=== PATIENT | male | born 1960 | race Caucasian/White ===

== ENCOUNTER 2016-07-26 09:01 | Outpatient (RCR) | payer BC ==
--- OUTSIDE RECORDS SUMMARY | 2016-07-26 09:04 | XMS REPORT | Continuity of Care Document ---
Author Author [facility] Organization [facility] Address Unknown Phone Unavailable Care Team Providers Care Egyptologist Name Role Phone PCP Unavailable Source Comments Some departments are not documenting in the electronic medical record. If you do not see the information that you expected, contact Release of Information in the Health Information Management department at [phone] for further assistance in locating additional records.[facility] Active Allergies and Adverse Reactions Not on File Current Medications Not on file Active Problems Not on file Social History Tobacco Use Types Packs/Day Years Used Date Never Assessed Plan of Care Health Maintenance Due Date Last Done Comments Physical (Comprehensive) 1967 Exam Pertussis Vaccine 1969 Tetanus Vaccine 1975 Colorectal Cancer 01/23/2008 Screening Influenza Vaccine 02/12/2016 Results from Last 3 Months Not on file
== END 2016-10-24 | disposition home or self-care (01) ==
LOC: ONC 09:01
PROVIDERS: ATTEND Internal Medicine Hematology & Oncology
DX: C92.10 Chronic myeloid leukemia, BCR/ABL-positive, not having achieved remission (principal); Z85.850 Personal history of malignant neoplasm of thyroid; E89.0 Postprocedural hypothyroidism; I12.9 Hypertensive chronic kidney disease with stage 1 through stage 4 chronic kidney disease, or unspecified chronic kidney disease; N18.3 Chronic kidney disease, stage 3 (moderate); Z79.899 Other long term (current) drug therapy

== ENCOUNTER → 2016-08-10 | Outpatient (CLI) | payer BC ==
--- OUTSIDE RECORDS SUMMARY | 2016-08-10 10:19 | XMS REPORT | Continuity of Care Document ---
Author Author [facility] Organization [facility] Address Unknown Phone Unavailable Care Team Providers Care Asbestos Pipe Supervisor Name Role Phone PCP Unavailable Source Comments Some departments are not documenting in the electronic medical record. If you do not see the information that you expected, contact Release of Information in the Health Information Management department at [phone] for further assistance in locating additional records.[facility] Active Allergies and Adverse Reactions Not on [...]
== END ==
LOC: FS 10:17
PROVIDERS: ATTEND Internal Medicine Hematology & Oncology
DX: C92.10 Chronic myeloid leukemia, BCR/ABL-positive, not having achieved remission (principal); Z85.850 Personal history of malignant neoplasm of thyroid; E89.0 Postprocedural hypothyroidism; I12.9 Hypertensive chronic kidney disease with stage 1 through stage 4 chronic kidney disease, or unspecified chronic kidney disease; N18.3 Chronic kidney disease, stage 3 (moderate); Z79.899 Other long term (current) drug therapy
CPT/HCPCS: 99213

== ENCOUNTER 2017-01-14 09:10 | Outpatient (RCR) | payer BC | END 2017-03-12 | disposition home or self-care (01) | LOC: ONC 09:10 | PROVIDERS: ATTEND Internal Medicine Hematology & Oncology | DX: C92.10 Chronic myeloid leukemia, BCR/ABL-positive, not having achieved remission (principal); Z85.850 Personal history of malignant neoplasm of thyroid; E89.0 Postprocedural hypothyroidism; I12.9 Hypertensive chronic kidney disease with stage 1 through stage 4 chronic kidney disease, or unspecified chronic kidney disease; N18.3 Chronic kidney disease, stage 3 (moderate); Z79.899 Other long term (current) drug therapy ==

== ENCOUNTER → 2017-02-01 | Outpatient (CLI) | payer BC | LOC: FS 01-31 15:23 | PROVIDERS: ATTEND Internal Medicine Hematology & Oncology | DX: C92.10 Chronic myeloid leukemia, BCR/ABL-positive, not having achieved remission (principal); Z85.850 Personal history of malignant neoplasm of thyroid; E89.0 Postprocedural hypothyroidism; I12.9 Hypertensive chronic kidney disease with stage 1 through stage 4 chronic kidney disease, or unspecified chronic kidney disease; N18.3 Chronic kidney disease, stage 3 (moderate); Z79.899 Other long term (current) drug therapy | CPT/HCPCS: 99213 ==

== ENCOUNTER 2017-08-09 09:43 | Outpatient (RCR) | payer BC | END 2017-11-07 | disposition home or self-care (01) | LOC: ONC 09:43 | PROVIDERS: ATTEND Internal Medicine Hematology & Oncology | DX: C92.10 Chronic myeloid leukemia, BCR/ABL-positive, not having achieved remission (principal); Z85.850 Personal history of malignant neoplasm of thyroid; E89.0 Postprocedural hypothyroidism; I12.9 Hypertensive chronic kidney disease with stage 1 through stage 4 chronic kidney disease, or unspecified chronic kidney disease; N18.3 Chronic kidney disease, stage 3 (moderate); Z79.899 Other long term (current) drug therapy | CPT/HCPCS: 99213 ==

== ENCOUNTER 2018-01-24 08:47 | Outpatient (RCR) | payer BC | END 2018-02-10 | disposition home or self-care (01) | LOC: ONC 08:47 | PROVIDERS: ATTEND Internal Medicine Hematology & Oncology | DX: C92.10 Chronic myeloid leukemia, BCR/ABL-positive, not having achieved remission (principal); Z85.850 Personal history of malignant neoplasm of thyroid; E89.0 Postprocedural hypothyroidism; I12.9 Hypertensive chronic kidney disease with stage 1 through stage 4 chronic kidney disease, or unspecified chronic kidney disease; N18.3 Chronic kidney disease, stage 3 (moderate); Z79.899 Other long term (current) drug therapy | CPT/HCPCS: 99213 ==

== ENCOUNTER 2018-07-24 09:16 | Outpatient (RCR) | payer BC | END 2018-10-22 | disposition home or self-care (01) | LOC: ONC 09:16 | PROVIDERS: ATTEND Internal Medicine Hematology & Oncology | DX: C92.10 Chronic myeloid leukemia, BCR/ABL-positive, not having achieved remission (principal); Z85.850 Personal history of malignant neoplasm of thyroid; E89.0 Postprocedural hypothyroidism; I12.9 Hypertensive chronic kidney disease with stage 1 through stage 4 chronic kidney disease, or unspecified chronic kidney disease; N18.3 Chronic kidney disease, stage 3 (moderate); Z79.899 Other long term (current) drug therapy | CPT/HCPCS: 99213 ==

== ENCOUNTER → 2019-01-22 | Outpatient (CLI) | payer BC | LOC: EDSTATUS 10-23 16:43 → ONC 08:51 | PROVIDERS: ATTEND Internal Medicine Hematology & Oncology | DX: C92.10 Chronic myeloid leukemia, BCR/ABL-positive, not having achieved remission (principal); Z85.850 Personal history of malignant neoplasm of thyroid; E89.0 Postprocedural hypothyroidism; I12.9 Hypertensive chronic kidney disease with stage 1 through stage 4 chronic kidney disease, or unspecified chronic kidney disease; N18.3 Chronic kidney disease, stage 3 (moderate); Z79.899 Other long term (current) drug therapy | CPT/HCPCS: 99213 ==

== ENCOUNTER → 2019-07-23 | Outpatient (CLI) | payer BC | LOC: ONC 08:46 | PROVIDERS: ATTEND Internal Medicine Hematology & Oncology | DX: C92.10 Chronic myeloid leukemia, BCR/ABL-positive, not having achieved remission (principal); Z85.850 Personal history of malignant neoplasm of thyroid; E89.0 Postprocedural hypothyroidism; I12.9 Hypertensive chronic kidney disease with stage 1 through stage 4 chronic kidney disease, or unspecified chronic kidney disease; N18.3 Chronic kidney disease, stage 3 (moderate); Z79.899 Other long term (current) drug therapy | CPT/HCPCS: 99213 ==

== ENCOUNTER → 2020-01-17 | Outpatient (CLI) | payer BC | LOC: ONC 08:34 | PROVIDERS: ATTEND Internal Medicine Hematology & Oncology | DX: C92.10 Chronic myeloid leukemia, BCR/ABL-positive, not having achieved remission (principal); Z85.850 Personal history of malignant neoplasm of thyroid; E89.0 Postprocedural hypothyroidism; I12.9 Hypertensive chronic kidney disease with stage 1 through stage 4 chronic kidney disease, or unspecified chronic kidney disease; N18.3 Chronic kidney disease, stage 3 (moderate); Z79.899 Other long term (current) drug therapy | CPT/HCPCS: 99213 ==

== ENCOUNTER → 2020-07-22 | Outpatient (CLI) | payer BC | LOC: ONC 08:58 | PROVIDERS: ATTEND Internal Medicine Hematology & Oncology | DX: C92.10 Chronic myeloid leukemia, BCR/ABL-positive, not having achieved remission (principal); E03.9 Hypothyroidism, unspecified; N18.30 Chronic kidney disease, stage 3 unspecified; Z79.899 Other long term (current) drug therapy; Z85.850 Personal history of malignant neoplasm of thyroid; Z90.89 Acquired absence of other organs | CPT/HCPCS: 99213 ==

== ENCOUNTER → 2021-02-19 | Outpatient (CLI) | payer BC | LOC: ONC 09:12 | PROVIDERS: ATTEND Internal Medicine Hematology & Oncology | DX: C92.10 Chronic myeloid leukemia, BCR/ABL-positive, not having achieved remission (principal); E03.9 Hypothyroidism, unspecified; E66.9 Obesity, unspecified; Z79.899 Other long term (current) drug therapy; Z85.850 Personal history of malignant neoplasm of thyroid | CPT/HCPCS: 99213 ==

== ENCOUNTER 2022-12-25 18:33 | Emergency (ER) | payer BC ==
[~2022-12-25] VITALS: Ht 172 cm; Wt 108.0 kg
--- NOTE | 2022-12-25 19:06 | ED Respiratory ---
General Chief Complaint: Cough/Cold/Flu Symptoms Stated Complaint: WHEEZING/COUGH Nursing Triage Note: PT PRESENTS TO ED WITH C/O COUGH AND WHEEZING X 1 WEEK. PT REPORTS SORE THROAT BEGAN A COUPLE DAYS AGO. PT HAS BEEN SEEN IN URGENT CARE TWICE THIS WEEK FOR SAME AND TESTED NEGATIVE FOR COVID AND STREP. DIAGNOSED WITH VIRAL INFECTION AND RX TESSALON PERLES BUT THEY HAVEN'T HELPED. PT NOT IN ANY APPARENT RESP DISTRESS AT TIME OF TRIAGE. Source: patient History of Present Illness Date Seen by Provider: Dec 25, 2022 Time Seen by Provider: 18:53 Initial Comments PT ARRIVES VIA POV FROM HOME PT HAS BEEN ON VACATION AND GOT HOME LAST TUESDAY SINCE TUESDAY NIGHT HE HAS BEEN ILL WITH A PRODUCTIVE COUGH, SHORTNESS OF BREATH AND WHEEZING, WELL A SORE THROAT. NO FEVER HE HAS BEEN SEEN AT [facility] URGENT [facility]/WALK IN CLINIC TWICE THIS WEEK FOR THIS PROBLEM--LAST TIME WAS THIS MORNING STREP AND COVID TESTS REPORTEDLY NEGATIVE. GIVEN RX FOR TESSALON, NO OTHER RX'S GIVEN PT STATES SYMPTOMS ARE NOT BETTER PT HAS HISTORY OF THYROID CANCER, AND RECEIVED RADIATION. HE IS NOW CURRENTLY BEING TREATED FOR CHRONIC LEUKEMIA WITH ORAL CHEMO. PCP: [facility] Allergies and Home Medications Allergies Coded Allergies: No Known Drug Allergies (Unverified , 06/15/10) Patient Home Medication List Azithromycin (Zithromax) 500 Mg Tablet, 500 MG PO DAILY Prescribed by: KAMILLA LONG on 12/25/222041 Cefdinir (Cefdinir) 300 Mg Capsule, 300 MG PO BID Prescribed by: KAMILLA LONG on 12/25/222041 Methylprednisolone (Medrol) 4 Mg Tab.ds.pk, 4 MG PO UD Prescribed by: KAMILLA LONG on 12/25/222041 Promethazine/Dextromethorphan (Promethazine-Dm Syrup) 6.25 Mg-15 Mg/5 Ml Syrup, 5 ML PO Q4H Prescribed by: KAMILLA LONG on 12/25/222041 Review of Systems Review of Systems Constitutional: see HPI, malaise, weakness EENTM: no symptoms reported Respiratory: see HPI, cough, phlegm, short of breath, wheezing Cardiovascular: no symptoms reported; No chest pain Gastrointestinal: no symptoms reported Genitourinary: no symptoms reported Musculoskeletal: no symptoms reported Skin: no symptoms reported Psychiatric/Neurological: No Symptoms Reported Hematologic/Lymphatic: No Symptoms Reported Immunological/Allergic: no symptoms reported Past Zuhqvxl-Yngwvs-Jhatus Hx Patient Social History Tobacco Use?: No Substance use?: No Alcohol Use?: No Pt feels they are or have been: No Physical Exam Vital Signs - First Documented 12/25/22 18:45 Pulse 88 Resp 18 B/P (MAP) 150/75 (100) Pulse Ox 96 O2 Delivery Room Air Capillary Refill : Less Than 3 Seconds Height: '" Weight: lbs. oz. kg; 36.00 BMI Method: Focused Exam Lactate Level 12/25/22 19:09: Lactic Acid Level 0.90 12/25/22 21:13: Lactic Acid Level 0.86 Lactic Acid Level Laboratory Tests Test 12/25/22 19:09 12/25/22 21:13 Lactic Acid Level 0.90 MMOL/L (0.50-2.00) 0.86 MMOL/L (0.50-2.00) Progress/Results/Core Measures Suspected Sepsis SIRS Temperature: Pulse: 88 Respiratory Rate: 18 Laboratory Tests 12/25/22 19:09: White Blood Count 5.1 Blood Pressure 150 /75 Mean: 100 12/25/22 19:09: Lactic Acid Level 0.90 12/25/22 21:13: Lactic Acid Level 0.86 Laboratory Tests 12/25/22 19:09: Creatinine 1.46H, INR Comment 1.1, Platelet Count 205, Total Bilirubin 0.7 Results/Orders Lab Results Laboratory Tests Test 12/25/22 19:09 12/25/22 20:30 12/25/22 21:13 Range/Units White Blood Count 5.1 4.3-11.0 10^3/uL Red Blood Count 3.92 L 4.30-5.52 10^6/uL Hemoglobin 12.2 L 13.3-17.7 g/dL Hematocrit 36 L 40-54 % Mean Corpuscular Volume 91 80-99 fL Mean Corpuscular Hemoglobin 31 25-34 pg Mean Corpuscular Hemoglobin Concent 34 32-36 g/dL Red Cell Distribution Width 13.2 10.0-14.5 % Platelet Count 205 130-400 10^3/uL Mean Platelet Volume 10.0 9.0-12.2 fL Immature Granulocyte % (Auto) 0 % Neutrophils (%) (Auto) 64 42-75 % Lymphocytes (%) (Auto) 21 12-44 % Monocytes (%) (Auto) 15 H 0-12 % Eosinophils (%) (Auto) 0 0-10 % Basophils (%) (Auto) 0 0-10 % Neutrophils # (Auto) 3.3 1.8-7.8 10^3/uL Lymphocytes # (Auto) 1.1 1.0-4.0 10^3/uL Monocytes # (Auto) 0.8 0.0-1.0 10^3/uL Eosinophils # (Auto) 0.0 0.0-0.3 10^3/uL Basophils # (Auto) 0.0 0.0-0.1 10^3/uL Immature Granulocyte # (Auto) 0.0 0.0-0.1 10^3/uL Erythrocyte Sedimentation Rate 18 0-30 MM/HR Prothrombin Time 14.2 12.2-14.7 SEC INR Comment 1.1 0.8-1.4 Activated Partial Thromboplast Time 32 24-35 SEC Sodium Level 136 135-145 MMOL/L Potassium Level 3.5 L 3.6-5.0 MMOL/L Chloride Level 104 98-107 MMOL/L Carbon Dioxide Level 23 21-32 MMOL/L Anion Gap 9 5-14 MMOL/L Blood Urea Nitrogen 15 7-18 MG/DL Creatinine 1.46 H 0.60-1.30 MG/DL Estimat Glomerular Filtration Rate 53 BUN/Creatinine Ratio 10 Glucose Level 128 H 70-105 MG/DL Lactic Acid Level 0.90 0.86 0.50-2.00 MMOL/L Calcium Level 8.4 L 8.5-10.1 MG/DL Corrected Calcium 8.6 8.5-10.1 MG/DL Magnesium Level 2.0 1.6-2.4 MG/DL Total Bilirubin 0.7 0.1-1.0 MG/DL Aspartate Amino Transf (AST/SGOT) 15 5-34 U/L Alanine Aminotransferase (ALT/SGPT) 17 0-55 U/L Alkaline Phosphatase 72 40-136 U/L Troponin I < 0.028 <0.028 NG/ML C-Reactive Protein High Sensitivity 4.93 H 0.00-0.50 MG/DL B-Type Natriuretic Peptide < 10.0 <100.0 PG/ML Total Protein 6.6 6.4-8.2 GM/DL Albumin 3.8 3.2-4.5 GM/DL Free Thyroxine 1.10 0.70-1.48 NG/DL TSH [place] Testing 0.07 L 0.35-4.94 UIU/ML Monoscreen NEGATIVE NEGATIVE Influenza Type A (RT-PCR) Not Detected Not Detecte Influenza Type B (RT-PCR) Not Detected Not Detecte SARS-CoV-2 RNA (RT-PCR) Not Detected Not Detecte Group A Streptococcus Screen NEGATIVE NEGATIVE Urine Color YELLOW Urine Clarity TURBID Urine pH 6.0 5-9 Urine Specific [place] <=1.005 1.016-1.022 Urine Protein TRACE H NEGATIVE Urine Glucose (UA) NEGATIVE NEGATIVE Urine Ketones NEGATIVE NEGATIVE Urine Nitrite NEGATIVE NEGATIVE Urine Bilirubin NEGATIVE NEGATIVE Urine Urobilinogen 0.2 < = 1.0 MG/DL Urine Leukocyte Esterase 3+ H NEGATIVE Urine RBC (Auto) 3+ H NEGATIVE Urine RBC 5-10 H /HPF Urine WBC 50-100 H /HPF Urine Squamous Epithelial Cells 2-5 /HPF Urine Crystals NONE /LPF Urine Bacteria LARGE H /HPF Urine Casts NONE /LPF Urine Mucus NEGATIVE /LPF Urine Yeast FEW H /HPF Urine Culture Indicated YES My Orders Orders - KAMILLA LONG DO Bnp Iain (12/25/22 18:52) Cbc With Automated Diff (12/25/22 18:52) Comprehensive Metabolic Panel (12/25/22 18:52) Hs C Reactive Protein (12/25/22 18:52) Lactic Acid Analyzer (12/25/22 18:52) Magnesium (12/25/22 18:52) Protime With Inr (12/25/22 18:52) Partial Thromboplastin Time (12/25/22 18:52) Thyroid Analyzer (12/25/22 18:52) Ua Culture If Indicated (12/25/22 18:52) Erythrocyte Sedimentation Rate (12/25/22 18:52) Troponin I Iain (12/25/22 18:52) Chest 1 View, Ap/Pa Only (12/25/22 18:52) Ekg Tracing (12/25/22 18:52) O2 (12/25/22 18:52) Monitor-Rhythm Ecg Trace Only (12/25/22 18:52) Covid 19 Inhouse Test (12/25/22 18:52) Influenza A And B By Pcr (12/25/22 18:52) Monotest (12/25/22 18:52) Rapid Strep A Screen (12/25/22 18:52) Throat Culture Strep A Confirm (12/25/22 19:09) Blood Culture (12/25/22 20:02) Lactic Acid Analyzer (12/25/22 20:02) Ed Iv/Invasive Line Start (12/25/22 20:29) Ns Iv 1000 Ml (Sodium Chloride 0.9%) (12/25/22 20:30) Ceftriaxone Iv/Im (Rocephin Iv/Im) (12/25/22 20:29) Azithromycin Tablet (Zithromax Tablet) (12/25/22 20:30) Free T4 (Free Thyroxine) (12/25/22 19:09) Urine Culture (12/25/22 20:30) Medications Given in ED Current Medications Medications Dose Ordered Sig/Chung Route Start Time Stop Time Status Last Admin Dose Admin Azithromycin 500 mg ONCE ONCE PO 12/25/22 20:30 12/25/22 20:31 DC 12/25/22 20:49 500 MG Vital Signs/I&O 12/25/22 12/25/22 12/25/22 18:45 18:50 21:16 Pulse 88 81 Resp 18 18 B/P (MAP) 150/75 (100) 149/83 Pulse Ox 96 97 O2 Delivery Room Air Room Air Room Air Capillary Refill : Less Than 3 Seconds Blood Pressure Mean: 100 Departure Impression Primary Impression: Bronchitis Additional Impressions: Upper respiratory infection Dehydration UTI (urinary tract infection) Disposition: 01 HOME, SELF-CARE Condition: Stable Departure-Patient Inst. Decision time for Depature: 20:38 Referrals: JAVIER HOFF MD (PCP/Family) Primary Care Physician Patient Instructions: Acute Bronchitis, Adult (DC), Dehydration, Adult (DC), Upper Respiratory Infection ED Add. Discharge Instructions: USE ALBUTEROL INHALER WITH SPACER--2 PUFFS EVERY 4 HOURS NEEDED FOR SHORTNESS OF BREATH OR WHEEZING USE TESSALON 1-2 PILLS EVERY 8 HOURS NEEDED FOR COUGH TYLENOL 1 GRAM PLUS MOTRIN 800 MG 4 TIMES A DAY NEEDED FOR PAIN OR FEVER LOTS OF FLUIDS--WATER, BROTH, JELLO, GATORADE FOLLOW UP WITH YOUR DR IN 3-4 DAYS IF NO BETTER, RETURN TO ER IF WORSE All discharge instructions reviewed with patient and/or family. Voiced tyler ford. Scripts Promethazine/Dextromethorphan (Promethazine-Dm Syrup) 6.25 Mg-15 Mg/5 Ml Syrup 5 ML PO Q4H for Cough, #200 ML Prov: KAMILLA LONG DO 12/25/22 Methylprednisolone (Medrol) 4 Mg Tab.ds.pk 4 MG PO UD for 6 Days, #21 PKG PER DOSE PACK INSTRUCTIONS Prov: KAMILLA LONG DO 12/25/22 Azithromycin (Zithromax) 500 Mg Tablet 500 MG PO DAILY for 5 Days, #5 TAB Prov: KAMILLA LONG DO 12/25/22 Cefdinir (Cefdinir) 300 Mg Capsule 300 MG PO BID, #20 CAP Prov: KAMILLA LONG DO 12/25/22 KAMILLA LONG DO Dec 25, 2022 19:06
[2022-12-25 19:20] LABS: BASOPHILS % (AUTO) 0 % (0-10); EOSINOPHILS % (AUTO) 0 % (0-10); HEMATOCRIT 36 % (40-54); HEMOGLOBIN 12.2 g/dL (13.3-17.7); LYMPHOCYTES # (AUTO) 1.1 10^3/uL (1.0-4.0); LYMPHOCYTES % (AUTO) 21 % (12-44); MEAN CORPUSCULAR HEMOGLOBIN 31 pg (25-34); MEAN CORPUSCULAR HGB CONC 34 g/dL (32-36); MEAN CORPUSCULAR VOLUME 91 fL (80-99); MONOCYTES # (AUTO) 0.8 10^3/uL (0.0-1.0); MONOCYTES % (AUTO) 15 % (0-12); NEUTROPHILS # (AUTO) 3.3 10^3/uL (1.8-7.8); NEUTROPHILS % (AUTO) 64 % (42-75); PLATELET COUNT 205 10^3/uL (130-400); WHITE BLOOD COUNT 5.1 10^3/uL (4.3-11.0)
--- NOTE | 2022-12-25 19:23 | Diagnostic Imaging Report ---
INDICATION: 62-year-old male with cough and shortness of breath. COMPARISONS: None FINDINGS: Single view of the chest shows normal heart, pulmonary vasculature, pleura and diaphragms with no focal opacities. Soft tissues and bony thorax are grossly unremarkable. IMPRESSION: No acute cardiopulmonary changes. Dictated by: Dictated on workstation # [id number]
[2022-12-25 19:31] LABS: INR 1.1 (0.8-1.4); PROTHROMBIN TIME PATIENT 14.2 SEC (12.2-14.7)
[2022-12-25 19:39] LABS: ERYTHROCYTE SEDIMENTATION RATE 18 MM/HR (0-30)
[2022-12-25 20:02] LABS: ALBUMIN 3.8 GM/DL (3.2-4.5); CHLORIDE 104 MMOL/L (98-107); POTASSIUM 3.5 MMOL/L (3.6-5.0); SODIUM 136 MMOL/L (135-145)
[2022-12-25 20:03] LABS: CALCIUM 8.4 MG/DL (8.5-10.1)
[2022-12-25 20:04] LABS: GLUCOSE 128 MG/DL (70-105); TOTAL PROTEIN 6.6 GM/DL (6.4-8.2)
[2022-12-25 20:05] LABS: CARBON DIOXIDE 23 MMOL/L (21-32)
[2022-12-25 20:06] LABS: BILIRUBIN,TOTAL 0.7 MG/DL (0.1-1.0)
[2022-12-25 20:08] LABS: ALKALINE PHOSPHATASE 72 U/L (40-136); CREATININE SERUM 1.46 MG/DL (0.60-1.30); GFR ESTIMATED 53
[2022-12-25 20:09] LABS: BUN/CREATININE RATIO 10
[2022-12-25 20:11] LABS: ALANINE AMINOTRANSFERASE 17 U/L (0-55)
[2022-12-25 20:26] LABS: TSH (THYROID ANALYZER) 0.07 UIU/ML (0.35-4.94)
[2022-12-25] MEDS ORDERED: cefTRIAXone IV/IM 1,000 MG in NS (IVPB) 50 ML IV STA (20:29)
[2022-12-25] MEDS ORDERED: NS IV 1000 ML 1,000 ML IV SCH (20:30)
[2022-12-25] MEDS ORDERED: AZITHROMYCIN 250 MG TAB (ZITHROMAX) PO ONE (20:30)
[2022-12-25] MEDS ORDERED: PROM473S15 PO ×2 (20:42→21:38)
[2022-12-25] MEDS ORDERED: AZIT500T PO ×2 (20:42→21:38)
[2022-12-25] MEDS ORDERED: METH4TAB PO ×2 (20:42→21:38)
[2022-12-25] MEDS ORDERED: CEFD300C3 PO ×2 (20:42→21:38)
[2022-12-25 20:48] LABS: BILIRUBIN,URINE NEGATIVE (NEGATIVE); CLARITY,URINE TURBID; COLOR,URINE YELLOW; GLUCOSE, URINE (UA) NEGATIVE (NEGATIVE); KETONES,URINE NEGATIVE (NEGATIVE); LEUKOCYTE ESTERASE ,URINE 3+ (NEGATIVE); NITRITE,URINE NEGATIVE (NEGATIVE); PROTEIN,URINE TRACE (NEGATIVE)
[2022-12-25 21:04] LABS: BACTERIA,URINE LARGE /HPF; WBC,URINE 50-100 /HPF
[2022-12-25 21:05] LABS: YEAST,URINE FEW /HPF
[2022-12-25 21:16] VITALS: BP 149/83
== END 2022-12-25 21:26 | disposition home or self-care (01) ==
LOC: EDUNIT# 18:33 → ER 18:36
DX: J40 Bronchitis, not specified as acute or chronic (principal); J06.9 Acute upper respiratory infection, unspecified; N39.0 Urinary tract infection, site not specified; E86.0 Dehydration; C95.10 Chronic leukemia of unspecified cell type not having achieved remission; Z20.822 Contact with and (suspected) exposure to COVID-19; Z79.899 Other long term (current) drug therapy
CPT/HCPCS: 36415; 71045; 80053; 81000; 83605; 83735; 83880; 84439; 84443; 84484; 85025; 85610; 85652; 85730; 86141; 86308; 87040; 87088; 87430; 87636; 93041